=== PATIENT | male | born 1955 | race Caucasian/White ===

== ENCOUNTER → 2022-04-28 | Outpatient (CLI) | payer MEDICARE ==
[2022-04-28 19:19] LABS: African American GFR (CKD) 93.9 (60.0-200.0); Anion Gap 11.5 mmol/L (10.00-18.00); Carbon Dioxide 23.3 mmol/L (20.0-27.5)
[2022-04-28 19:33] LABS: HGB 12.5 g/dL (13.0-17.0); MCHC 32.1 g/dL (32.0-37.0); MCV 87.4 fL (80.0-97.0); Mean Platelet Volume 10.6 fL (9.5-12.2); NRBC Per 100 WBC 0 /100 WBCS (0.0-0.0); Platelet Count 247 X 10*3/uL (140-440); RBC 4.46 X 10*6/uL (4.40-5.60); RDW 13.2 % (11.5-14.5); WBC 8.73 X 10*3/uL (4.50-10.00)
== END | disposition home or self-care (01) ==
LOC: LABPAT 13:05
PROVIDERS: ATTEND Internal Medicine
DX: Z01.812 Encounter for preprocedural laboratory examination (principal); R07.9 Chest pain, unspecified
CPT/HCPCS: 36415; 80051; 82565; 84520; 85027

== ENCOUNTER 2022-05-05 06:11 | Day surgery (SDC) | payer MEDICARE ==
[2022-05-04 09:36] VITALS: BMI 35.3
[~2022-05-05 06:11] MED LIST: ALPRAZolam 0.25 MG TAB PO PRN; ALPRAZolam 0.5 MG TAB PO PRN; ASPIRIN 325 MG TAB PO STA; ATORVASTATIN 80 MG TAB PO STA; HEPARIN SODIUM,PORCINE 10,000 UNIT in SODIUM CHLORIDE 0.9% 1,000 ML IRRIGATION PRN; HEPARIN SODIUM,PORCINE 2,500 UNIT in SODIUM CHLORIDE 0.9% 250 ML IRRIGATION PRN; NITROGLYCERIN SL TABS 0.4 MG TAB SUBLINGUAL PRN; SODIUM CHLORIDE 0.9% 1,000 ML in EMPTY BAG 1 BAG IV SCH
[2022-05-05] MEDS ORDERED: SODIUM CHLORIDE 0.9% 1,000 ML IV ONE (06:45)
[2022-05-05 06:59] LABS: Glucose,Whole Blood 142 mg/dL (70-110)
[2022-05-05 07:01] VITALS: RESP 16; TEMP 98.2
[2022-05-05] MEDS ORDERED: VERAPAMIL 2.5 MG/ML 2 ML AMP ONE (07:13)
[2022-05-05] MEDS ORDERED: HEPARIN SODIUM 1,000 UN/ML (10ML VL) ONE (07:26)
[2022-05-05] MEDS ORDERED: fentaNYL (PF) 50 MCG/ML 2 ML AMP ONE (07:26)
[2022-05-05] MEDS ORDERED: MIDAZOLAM 2 MG/2 ML VIAL IVP ONE (07:43)
[2022-05-05] MEDS ORDERED: fentaNYL (PF) 50 MCG/ML 2 ML AMP IVP ONE (07:43)
[2022-05-05] MEDS ORDERED: LIDOCAINE 1% INJ 10MG/ML (5 ML VIAL-PF) SQ ONE (07:44)
[2022-05-05] MEDS ORDERED: VERAPAMIL SYRINGE (5 MG/10 ML) INTRAARTER ONE (07:45)
[2022-05-05] MEDS ORDERED: HEPARIN SODIUM 1,000 UN/ML (10ML VL) IV ONE ×2 (07:46→07:48)
[2022-05-05] MEDS ORDERED: IOPAMIDOL-370 125ML BTL INJ ONE (07:58)
--- NOTE | 2022-05-05 08:09 | P.CARDCATH ---
Description of Procedure: PROCEDURES PERFORMED: Left heart catheterization, bilateral coronary angiography INDICATION: Nonsustained VT HISTORY: Patient is a pleasant 67-year-old male who had one near syncopal episode and was found to have frequent PVCs and nonsustained VT on event monitor. He is having atypical chest pain. Therefore heart catheterization was recommended. CONSENT:I have discussed the risks, benefits and alternative therapies for the above-mentioned procedure and for both sedation/analgesia as well as necessary blood product administration, if indicated, as they pertain to this patient. The patient has indicated understanding and acceptance of the risks and procedures discussed. PROCEDURE: After the risks, benefits and alternatives of the above mentioned procedure explained in detail with the patient, informed consent was obtained. Patient was taken to the catheterization lab and prepped and draped in usual fashion. 1% lidocaine was used to anesthetize the right radial artery. A 6- [place]an sheath was placed in the right radial artery using modified Seldinger technique. Left coronary angiography was performed with a 5-[place]an JL 3.5 catheter and right coronary angiography was performed with a 5-[place] JR5 catheter in various views. A 5-[place]an FR5 catheter was inserted into the left ventricle and pressure measurements were obtained. The right radial sheath was removed and a TR band was placed with hemostasis achieved. The patient tolerated the procedure well. Patient was transported back to the post catheterization holding area in stable condition. 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 There is no significant stenosis. LEFT ANTERIOR DESCENDING CORONARY ARTERY: LAD is a large caliber vessel which wraps around to the apex. There are mild luminal irregularities. LEFT CIRCUMFLEX CORONARY ARTERY: Left circumflex is a small caliber and only has 1 OM branch which comes off the left main. RIGHT CORONARY ARTERY: The right coronary artery is a large caliber vessel which gives off a PDA and PLV branch and is the dominant vessel. There is no significant stenosis. 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 FINAL IMPRESSION: 1. 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 2. Elevated left sided filling pressures PLAN: 1. Aggressive risk factor modification per most recent ACC/AHA guidelines. 2. Follow-up in the office in 1-2 weeks.
[2022-05-05] MEDS ORDERED: GLIMEPIRIDE 2 MG TAB PO SCH (08:30)
[2022-05-05 11:16] VITALS: BP 155/78; PULSE 58
== END 2022-05-05 11:17 | disposition home or self-care (01) ==
LOC: CATHCVL 06:11
PROVIDERS: ATTEND Internal Medicine
DX: Q24.5 Malformation of coronary vessels (principal); I49.3 Ventricular premature depolarization; I10 Essential (primary) hypertension; E78.5 Hyperlipidemia, unspecified; E11.9 Type 2 diabetes mellitus without complications; E66.9 Obesity, unspecified; I35.0 Nonrheumatic aortic (valve) stenosis; Z79.899 Other long term (current) drug therapy; Z79.84 Long term (current) use of oral hypoglycemic drugs; F17.210 Nicotine dependence, cigarettes, uncomplicated
CPT/HCPCS: 93458; 87635; C1769; C1894; J2250; J2001; J3010; J1644; Q9967

== ENCOUNTER 2024-07-03 06:30 | Day surgery (SDC) | payer MEDICARE ==
[2024-07-03] MEDS ORDERED: LACTATED RINGERS 1,000 ML BAG ONE (09:50)
[2024-07-03] MEDS ORDERED: PROPOFOL 10 MG/ML 20 ML VIAL IV ONE (10:37)
--- NOTE | 2024-07-12 15:53 | OP ---
OPERATIVE REPORT DATE OF SERVICE : 07/03/2024 REQUESTING PHYSICIAN: Dr. Knox BRIEF HISTORY: The patient is a 69-year-old pleasant white male, scheduled for elective upper endoscopy as a part of evaluation of chronic epigastric pain for the last 2 months' duration. He denies any heartburn. Reports no dysphagia or odynophagia. He some nausea but no emesis. He was started on omeprazole 20 mg daily with no significant improvement in his symptoms. He also stated that he was started on Mounjaro about 8 months ago and the dose was escalated in the last few months. PROCEDURE PERFORMED: Esophagogastroduodenoscopy with biopsy. PREOPERATIVE DIAGNOSIS: Chronic epigastric pain and persistent nausea. ANESTHESIA: IV sedation per Anesthesia. DESCRIPTION OF PROCEDURE: After informed consent was obtained from the patient, he was brought into the endoscopy unit. IV conscious sedation was administered by Anesthesia under continuous monitoring. Initially, the Olympus CF-180 video endoscope was inserted in to mouth. Esophagus intubated without any difficulty and was gradually advanced into the stomach and duodenum and carefully examined. Bulb and second part of the duodenum appeared normal. The scope at this time was withdrawn to the stomach, adequately insufflated with air and upon careful examination, mucosa of the antrum had diffuse gastritis. Biopsies for H pylori were done. Body of the stomach appeared normal and in retroflexion, cardia and fundus appeared normal. Scope was then withdrawn to the esophagus. The GE junction was located at 44 cm from the incisors. It appeared regular with no erythema, erosions or ulcerations. The entire length of the esophagus appeared normal and the patient tolerated the procedure well. Biopsies were also done from the distal esophagus. IMPRESSION: 1. Mild antral gastritis. 2. No evidence of esophagitis or peptic ulcer disease. RECOMMENDATIONS: Findings of this examination were discussed with the patient as well as his family. He was advised to follow up with the biopsy results. In the meantime, continue on omeprazole 20 mg daily and follow anti-reflux measures. Recommended that he decrease the dose of Mounjaro and see if he has any symptomatic improvement. Follow up in the office in 3 to 4 weeks. MMODL / IJN: [id number] /
== END 2024-07-03 11:20 ==
LOC: ORWHC2ENDO 06:30
PROVIDERS: ATTEND Internal Medicine Gastroenterology
DX: K29.50 Unspecified chronic gastritis without bleeding (principal); G89.29 Other chronic pain; Z79.899 Other long term (current) drug therapy
CPT/HCPCS: 43239; 88305